=== PATIENT | female | born 1945 | race Caucasian/White ===

== ENCOUNTER 2016-06-19 08:10 | Observation (INO) | payer MEDICARE, OTHER ==
--- NOTE | ~2016-06-19 | TH ---
Unit #: [id number] #: [id number] Patient: CISCO NASH [id number] [address] [address] [id number] O MR#: [id number] NAME: CISCO NASH. : 1945 SEX: F STUDY DATE/TIME: UNIT: [facility] ROOM: STUDY DESCRIPTION: Nuclear Study Attending Physician: Tyrese Kumar Jr., M.D. Primary Care Physician: Tyrese Kumar Jr., M.D. CARDIOLOGY REPORT EXAM Exercise Cardiolite Stress Test - Nuclear Portion PROCEDURE Using technetium 99m labeled Cardiolite, rest and stress SPECT images were obtained. Multiple SPECT images were obtained in various views including horizontal and vertical long axis and short axis views of the left ventricle. Images were obtained by gated SPECT method. The patient was administered 12.0 mCi of Cardiolite at rest. The patient was administered 35.2 mCi of Cardiolite at peak exercise. Total exercise time is 6 minutes 44 seconds. On the stress images, there is normal perfusion noted. The rest images show mild decreased isotope activity anteroapically. Comparing rest and stress images, there is no stress-induced ischemia noted. The left ventricular ejection fraction is calculated to be 81%. There is no focal wall motion abnormality seen. The left ventricular size is small. CONCLUSION 1. No stress-induced ischemia noted. 2. The left ventricular ejection fraction is calculated to be 81%. 3. There is no focal wall motion abnormality seen. 4. The left ventricular size is small. 5. Normal nuclear portion of the stress test. 6. It must be noted that the patient had chest pain and some EKG changes during the exercise portion of the stress test. Her symptoms and EKG changes could either be due to poorly controlled blood pressure. If clinical suspicion is high, patient may need cardiac catheterization for definitive diagnosis. Dictated by.Martina. Paula Sam TD: 06/19/2016 11:47 JOB #: [id number] Unit #: [id number] #: [id number] Patient: CISCO NASH CARDIOLOGY REPORT Page 1 of 1 X Cassidy Wade MD <ELECTRONICALLY SIGNED> 10/14/16 1429 CARDIOLOGY REPORT
--- NOTE | ~2016-06-19 | DS ---
Unit #: [id number] #: [id number] Patient: CISCO NASH [id number] [facility] [address] [facility]. [place], [place] [address] [id number] I MR#: [id number] NAME: CISCO NASH. ROOM: 55 Age: 71 Sex: F Admission Date: 06/19/2016 : 1945 Discharge Date: 06/21/2016 Attending Physician: Timur Taylor M.D. Primary Care Physician: Tyrese Kumar Jr., M.D. DISCHARGE SUMMARY DISCHARGE DIAGNOSES 1. Abnormal exercise Cardiolite stress test with EKG changes and development of chest pain with radiation into the jaw. No ischemia on nuclear images. 2. Coronary artery disease, status post cardiac catheterization on 06/19/2016 at [facility] per Dr. Taylor, which revealed normal LV function. Left main, left anterior descending, and left circumflex normal. Right coronary artery with 60% long segment stenosis in the mid section. FFR 0.94, which was clinically nonsignificant. 2D echocardiogram on 06/19/2016 revealed a left ventricular ejection fraction of 55% to 60%. No regional wall motion abnormality. No significant valvular heart disease. No evidence of any pericardial effusion. Medical management with addition of Imdur and calcium channel danyel. However, calcium channel danyel discontinued secondary to orthostatic hypotension. 3. Previous cardiac catheterization on 11/30/2010 at [facility] revealed a left ventricular ejection fraction of 70% to 75%, mid left anterior descending 30% to 40%, right coronary artery and left circumflex normal. 4. History of hypertension, with recent orthostasis. 5. Hyperlipidemia. 6. Sarcoidosis. 7. Hypothyroidism. 8. Anxiety. 9. GERD. DISCHARGE MEDICATIONS Tylenol 650 mg p.o. q.6 hours p.r.n. for pain [id number], Lipitor 80 mg p.o. at bedtime, atenolol 50 mg p.o. daily, hydrochlorothiazide 12.5 mg p.o. daily, aspirin 81 mg p.o. daily, omeprazole 20 mg p.o. b.i.d., levothyroxine 88 mcg p.o. every morning, isosorbide mononitrate 30 mg p.o. daily, nitroglycerin 0.4 mg sublingual as needed for chest pain, calcium and vitamin D 600 mg p.o. b.i.d., Celexa 20 mg p.o. daily. HOSPITAL COURSE This is a 71-year-old white female, who presented to [facility] for an elective stress test due to chest pain. Pain was reportedly in the substernal chest and described as pressure with radiation to the bilateral neck, jaw, and face. She also had some shortness of breath and weakness, but no dizziness or palpitations. During the stress test, she had persistent chest pain. There was no change after sublingual nitroglycerin. Her blood pressure was elevated at 181/76 mmHg. EKG during the stress test revealed minor changes. The Unit #: [id number] #: [id number] Patient: CISCO NASH patient and daughter were informed and wanted to proceed with cardiac catheterization. Dr. Wade saw the patient in the stress lab and examined the patient. She has been admitted for further observation of chest pain. Cardiac enzymes were obtained and she ruled out for myocardial infarction. She was started on aspirin, and her beta-danyel, statin, and hydrochlorothiazide were restarted. Fasting lipid profile was obtained as well as a 2D echocardiogram with Doppler. Left ventricular ejection fraction was normal at 55% to 60%, and there was no valvular heart disease noted. The patient underwent a cardiac catheterization on 06/20/2016 at [facility] per Dr. Taylor. Coronary angiography revealed a normal left main, LAD, and left circumflex. Right coronary artery had a long segment stenosis of 60% in the mid section. FFR was completed and was nonsignificant at 0.94. She was continued on medical management with addition of Imdur and amlodipine. After the cardiac catheterization, the patient developed an episode of dizziness, nausea, and recurrent chest pain with radiation. She was given nitroglycerin and her pain improved. However, she continued to have some dizziness and nausea. She was kept in the hospital for a couple of hours and ambulated later in the afternoon. Upon ambulation, she developed recurrent dizziness. Orthostatics were obtained and were positive with approximately 30 mmHg drop with standing. Her discharge was canceled and she was kept overnight for further management. Unfortunately, her amlodipine was discontinued. Her hydrochlorothiazide was also stopped. Subsequently, the next day, her blood pressure improved. Repeat orthostatics were negative. Dr. Wade saw the patient and restarted her hydrochlorothiazide at a low dose, but the amlodipine was stopped altogether. The patient was anxious throughout hospitalization and has been started on Celexa. She has been instructed to take medications as prescribed and to follow up with her primary care and Dr. Wade. If her blood pressure is elevated at home, she can take an additional dose of atenolol. Telemetry reveals no sustained arrhythmias. Cath site is soft, without hematoma. Vitals and labs are currently unremarkable. DIAGNOSTIC STUDIES LABORATORY RESULTS: White blood cell count 8.5, hemoglobin 12, hematocrit 36.6, platelets 167. Sodium 140, potassium 4.2, chloride 109, CO2 of 26, BUN 19, creatinine 1.0, glucose 105. Troponin 0.03 and 0.03. Total cholesterol 151, triglycerides 92, LDL 89, HDL 44. INR 1.0. IMAGING STUDIES: Chest x-ray reveals no acute findings. CARDIOVASCULAR STUDIES: EKG reveals normal sinus rhythm with a ventricular rate of 78 beats per minute. No acute ST or T-wave changes. PHYSICAL EXAMINATION VITAL SIGNS: Temperature 97.8, pulse 63, blood pressure 151/66. CONSTITUTIONAL: This is a 71-year-old white female, in no acute distress. SKIN: Warm and dry. NECK: Supple. No jugular vein distention. No hepatojugular reflux. Normal carotid upstrokes. No carotid bruits auscultated. HEART: S1 and S2. Regular rate and rhythm. No murmurs, rubs, or gallops. LUNGS: Bilateral breath sounds have good air entry throughout all lung mendez. Respirations even and nonlabored. No rales, rhonchi, or wheezes. Unit #: [id number] #: [id number] Patient: CISCO NASH ABDOMEN: Soft, nontender, and nondistended. Positive bowel sounds auscultated x4 quadrants. No ascites noted. EXTREMITIES: Bilateral lower extremities have no pretibial pitting edema. DP and PT pulses are 2+. Capillary refill less than 2 seconds. DISCHARGE INSTRUCTIONS 1. The patient will be discharged home today. 2. Follow up with primary care provider in 1 to 2 weeks. 3. Follow up with Dr. Wade on 08/15/2016 at 12:30 p.m. 4. BMP on 07/04/2016 due to mildly low GFR. Results to be called to [phone]. 5. Postcatheterization instructions provided. Dictated by... Madina Robles APRN for Cassidy Paula Wade/keshav TD: 06/23/2016 00:45 JOB #: [id number] DISCHARGE SUMMARY Page 1 of 1 X X DISCHARGE SUMMARY
--- NOTE | ~2016-06-19 | ST ---
Unit #: [id number] #: [id number] Patient: CISCO NASH [id number] [facility]. [address] [place], [place] [address] [id number] O MR#: [id number] NAME: CISCO NASH. : 1945 SEX: F STUDY DATE/TIME: 06/19/2016 UNIT: CN ROOM: STUDY DESCRIPTION: Attending Physician: Tyrese Kumar Jr., M.D. Primary Care Physician: Tyrese Kumar Jr., M.D. CARDIOLOGY REPORT EXAM Exercise Cardiolite stress test. FINDINGS Baseline EKG shows sinus bradycardia with a rate of 58 beats per minute, otherwise normal. PROCEDURE The patient exercised on a treadmill using Joselito protocol for 6 minutes and 44 seconds, achieving a workload of 7.6 METs. Next, 86% of the maximum age-predicted heart rate was reached at 130 beats per minute with a maximum blood pressure response of 181/76 mmHg. The patient had a complaint of substernal chest pressure rated a 5/10 on pain scale at 2 minutes into the test. There was no electrocardiogram changes at that time. She continued to exercise; however, in the last stage of stage 2, her chest pressure radiated into her left anterior chest. She continued to walk on the treadmill for 45 seconds after being injected. There was a downsloping ST segment depression of 0.5 mm to 1 mm in the inferior leads. The test was terminated secondary to achieving target heart rate and chest pain. IMPRESSION 1. Functional class II with a workload of 7.6 METs with fair exercise tolerance. 2. Eighty six percent of the maximum age-predicted heart rate was reached at 130 beats per minute with a hypertensive blood pressure response. 3. The patient had a complaint of chest pain at 2 minutes into the test, worsening but improved in the recovery phase. 4. Cardiolite was injected at peak exercise. Radionuclide tests pending. 5. Of note, the patient was given one sublingual nitroglycerin but had no change in her chest pressure. Dictated by... Rivas Zayas A.P.R.N. for Paula Sam TD: 06/19/2016 10:27 Unit #: [id number] #: [id number] Patient: CISCO NASH JOB #: [id number] CC: Tyrese Kumar Jr. MMarjorie CARDIOLOGY REPORT Page 1 of 1 X Rivas Zayas APRN CARDIOLOGY REPORT
--- NOTE | ~2016-06-19 | HP ---
Unit #: [id number] #: [id number] Patient: CISCO NASH [id number] [facility]. [address] [place], [place] [address] [id number] I MR#: [id number] NAME: CISCO NASH. ROOM: 556 Age: 71 Sex: F Admission Date: 06/19/2016 : 1945 Attending Physician: Timur Taylor M.D. Primary Care Physician: Tyrese Kumar Jr., M.D. HISTORY AND PHYSICAL HISTORY OF PRESENT ILLNESS This is a 71-year-old, white female who was scheduled for an elective exercise Cardiolite stress test for evaluation of chest pain. The patient states she has substernal chest pressure, which radiates to both neck and jaw and into her face and cheeks. She has associated shortness of breath and weakness. No dizziness or palpitations. She had . She had chest pain within 2 minutes of walking on the treadmill that was moderate. There were no electrocardiogram changes. She continued to walk; however, the pain spread to her left anterior chest. At that time, she reached her target heart rate and the test was stopped. Her images were normal. There were minor changes in the electrocardiogram at the end of the test. She was hypertensive with blood pressure 181/76 mmHg. The patient has risk factors for ischemic heart disease including hypertension, hyperlipidemia, and strong family history of premature coronary artery disease. She had a cardiac catheterization in 2010 at [facility] where she was found to have nonobstructive coronary artery disease with 30% to 40% stenosis in the mid LAD. She has not followed with cardiology. She was very active where she was walking every other day 2 miles a day, but stopped in late December because of the cold weather. She has not started walking as of yet because she has been feeling weak. PAST MEDICAL HISTORY 1. Cardiac catheterization, 06/30/2010, shows an ejection fraction equal to 70% to 75% with mid LAD stenosis of 30% to 40%. Right coronary artery, left main, and circumflex artery normal. 2. Hypertension. 3. Hyperlipidemia. 4. Sarcoidosis. 5. Hypothyroidism. 6. Nonsmoker. PAST SURGICAL HISTORY No major surgeries. SOCIAL HISTORY The patient lives at home alone. She has never smoked. She denies illicit drug and alcohol use. FAMILY HISTORY Both parents had open heart surgery. Has a sister who also had open heart surgery. Has several brothers, all but one, who has heart disease. Unit #: [id number] #: [id number] Patient: CISCO NASH ALLERGIES Augmentin and amoxicillin. HOME MEDICATIONS 1. Simvastatin 40 mg q.h.s. 2. Levothyroxine 88 mcg daily. 3. Calcium plus D 600 mg b.i.d. 4. Reclast 10 mg IV yearly. 5. Omeprazole 20 mg b.i.d. 6. Tenormin 100 mg daily. 7. Hydrochlorothiazide 12.5 mg daily. REVIEW OF SYSTEMS CONSTITUTIONAL: Negative for fever or chills. Reports no weight gain or weight loss. Positive for weakness. HEENT: No headache changes or difficulty with swallowing. No dizziness. CARDIOVASCULAR: Has chest pain, as described in the HPI. Denies palpitations. No paroxysmal nocturnal dyspnea or orthopnea. No syncope or near syncope. RESPIRATORY: Positive for dyspnea that accompanies chest pain. No cough or hemoptysis. GASTROINTESTINAL: No abdominal pain, nausea, or vomiting. No constipation or melena. EXTREMITIES: Negative for lower extremity . PHYSICAL EXAMINATION VITAL SIGNS: Blood pressure 181/76 and heart rate 64. GENERAL: This is a pleasant, 71-year-old, well developed, white female who is in no acute distress. NEUROLOGICAL: She is awake, alert, and oriented; but noted for anxiety. NECK: Trachea is midline. No thyromegaly or lymphadenopathy. No jugular venous distention. HEART: S1 and S2 heart sounds are normal. No murmurs. No rubs or clicks. Regular rate and rhythm. LUNGS: Clear to auscultation without rales, rhonchi, or wheezes. ABDOMEN: Soft and nontender. Good bowel sounds are present. EXTREMITIES: Without leg edema. SKIN: Warm and dry. DIAGNOSTIC STUDIES CARDIOVASCULAR: Electrocardiogram shows normal sinus rhythm, but no acute ischemic changes at baseline. Repeat electrocardiogram during stress test showed a downsloping ST depression of 0.5-1 mm in the inferior leads. IMPRESSION 1. Chest pain, probably progression of her coronary artery disease. 2. Nonobstructive coronary artery disease per cardiac catheterization in 2010. 3. Hypertension. 4. Hyperlipidemia. 5. Anxiety. PLAN 1. The patient's results of the stress test were discussed between the Unit #: [id number] #: [id number] Patient: CISCO NASH daughter, patient, and Dr. Wade in the stress lab. She was given the option of continued medical therapy versus cardiac catheterization. The patient opted for cardiac catheterization. 2. Will start the patient on anticoagulation with aspirin. 3. Trend troponin. 4. Continue beta-danyel. 5. Two-dimensional echocardiogram will be done to evaluate left ventricular systolic function. 6. Chest x-ray for differential cause of chest pain. 7. Risks, benefits, and procedure were discussed with the patient and daughter including bleeding, myocardial infarction, CVA, renal and vascular complications, and . They agreed to proceed. Dictated by Benedict Rosales M.D. AEP/pc TD: 06/20/2016 07:10 JOB #: [id number] HISTORY AND PHYSICAL Page 1 of 1 X Rivas Zayas APRN HISTORY AND PHYSICAL
--- NOTE | ~2016-06-19 | EKG ---
PATIENT: CISCO NASH UNIT #: [id number] Ventricular Rate: 57 BPM Atrial Rate: 57 BPM P-R Interval: 168 ms QRS Duration: 86 ms Q-T Interval: 440 ms QTC Calculation(Bezet): 428 ms P [place]: 62 degrees Calculated R [place]: 57 degrees Calculated T [place]: 18 degrees Diagnosis Line: Sinus bradycardia Diagnosis Line: Otherwise normal ECG Diagnosis Line: When compared with ECG of 19-JUN-2016 13:32, Diagnosis Line: No significant change was found Diagnosis Line: Confirmed by SRAVANTHI DALY MD ([id number]) on Diagnosis Line: 06/25/2016 2:07:20 PM INTERPRETING MD: RALEIGH
--- NOTE | ~2016-06-19 | CR63 ---
[facility] A Service of [facility] & [facility] RADIOLOGY TEXT RESULTS PATIENT: CISCO NASH LOCATION: [place] [address] : [birth year] UNIT #: [id number] AGE: [address]: Timur Taylor MD SEX: F ORDER DR: [id number] [facility] [address] [place], [place] [address] [id number] I MR#: [id number] Acc #: [id number] NAME: CISCO NASH. : 1945 SEX: F STUDY DATE/TIME: 06/19/2016 14:02 UNIT: [facility] ROOM: [facility] STUDY DESCRIPTION: CR Chest 2 View Attending Physician: Timur Taylor M.D. Ordering Physician: Ed Doroteo Rich M.D. Primary Care Physician: Tyrese Kumar Jr., M.D. MEDICAL IMAGING REPORT This report is preliminary unless electronic signature is present EXAM PA and lateral chest. HISTORY 71-year-old female with chest pain and short of breath today. COMPARISON 06/12/2016 FINDINGS No new infiltrates. Heart size is stable. Degenerative change, thoracic spine. IMPRESSION No active disease. Dictated by... Ganga Velazquez M.D. THIS IS AN ELECTRONICALLY VERIFIED REPORT Ganga Velazquez M.D. at 06/20/2016 10:00 AM Josh TD: 06/19/2016 18:07 JOB #: [id number] MEDICAL IMAGING REPORT Page 1 of 1 COPY
--- NOTE | ~2016-06-19 | EKG ---
PATIENT: CISCO NASH UNIT #: [id number] Ventricular Rate: 70 BPM Atrial Rate: 70 BPM P-R Interval: 168 ms QRS Duration: 84 ms Q-T Interval: 416 ms QTC Calculation(Bezet): 449 ms P [place]: 53 degrees Calculated R [place]: 25 degrees Calculated T [place]: 9 degrees Diagnosis Line: Normal sinus rhythm Diagnosis Line: Normal ECG Diagnosis Line: No previous ECGs available Diagnosis Line: Confirmed by ALESSIA HERNANDEZ MD ([id number]) on 06/20/2016 Diagnosis Line: 10:27:30 PM INTERPRETING MD: MARY MEDEIROS
[~2016-06-19 08:10] MED LIST: ATENOLOL PO; ATENOLOL50 MG PO; CALCIUM WITH D PO; IMDUR30 MG PO; PRILOSEC PO; RECLAST 55 MG/100 M IV; SIMVASTATIN40 MG PO; SINGULAIR PO; TIROSINT88 MCG PO; VITAL-D RX TABL1 TAB PO; XYZAL5 MG PO
[2016-06-19] MEDS ORDERED: HYDROCHLOROTH12.5 M1 PO (13:19)
[2016-06-19 16:47] LABS: HEMATOCRIT 43.6 % (35.0-45.0); HEMOGLOBIN 14.2 gm/dL (12.0-16.0); MEAN CELL VOLUME 93.1 FL (83-96); MEAN CORPUSCULAR HEMOGLOBIN 30.3 PG (28-34); MEAN CORPUSCULAR HGB CONC 32.6 g/dL (30-36); MEAN PLATELET VOLUME 10.6 FL (6.5-11.5); RED BLOOD COUNT 4.68 X10e (3.90-5.30); RED CELL DISTRIBUTION WIDTH 15.2 % (11.0-15.5); WHITE BLOOD COUNT 7.1 X10e3 (4.0-10.5)
[2016-06-19 17:25] LABS: BUN/CREATININE RATIO 12.22; CALCIUM SERUM 9.4 mg/dL (8.4-10.2); CREATININE SERUM 0.9 mg/dL (0.6-1.4); GLOM FILT RATE Estimated 65.3 mL/min (>60); POTASSIUM 3.6 mmol/L (3.5-5.1)
[2016-06-19 17:48] LABS: %MB 2.8 % (0.0-4.0); MB 2.7 ng/ml
[2016-06-20 06:16] LABS: HEMATOCRIT 38.7 % (35.0-45.0); HEMOGLOBIN 12.8 gm/dL (12.0-16.0); MEAN CELL VOLUME 93.6 FL (83-96); MEAN CORPUSCULAR HEMOGLOBIN 30.9 PG (28-34); MEAN PLATELET VOLUME 10.1 FL (6.5-11.5); RED BLOOD COUNT 4.14 X10e (3.90-5.30); RED CELL DISTRIBUTION WIDTH 15.7 % (11.0-15.5); WHITE BLOOD COUNT 6.1 X10e3 (4.0-10.5)
[2016-06-20 06:32] LABS: PROTHROMBIN TIME (PATIENT) 10.2 SECONDS (9.6-11.5)
[2016-06-20 07:17] LABS: CALCIUM SERUM 9.1 mg/dL (8.4-10.2); GLOM FILT RATE Estimated 57.5 mL/min (>60); POTASSIUM 4.6 mmol/L (3.5-5.1)
[2016-06-20] MEDS ORDERED: PAIN RELIEF325 M1 PO (14:20)
[2016-06-20] MEDS ORDERED: LIPITOR80 MG PO (14:21)
[2016-06-20] MEDS ORDERED: BAYER CHEWABLE81 MG PO (14:22)
[2016-06-20] MEDS ORDERED: NITROSTAT0.4 MG SL (14:23)
[2016-06-20] MEDS ORDERED: AMLODIPINE BESYL5 MG PO (14:24)
[2016-06-20] MEDS ORDERED: IMDUR-ER30 M3 PO (14:24)
[2016-06-21 06:26] LABS: HEMATOCRIT 36.6 % (35.0-45.0); MEAN CELL VOLUME 94.4 FL (83-96); MEAN CORPUSCULAR HEMOGLOBIN 30.8 PG (28-34); MEAN CORPUSCULAR HGB CONC 32.7 g/dL (30-36); MEAN PLATELET VOLUME 10.4 FL (6.5-11.5); RED BLOOD COUNT 3.88 X10e (3.90-5.30); RED CELL DISTRIBUTION WIDTH 15.1 % (11.0-15.5); WHITE BLOOD COUNT 8.5 X10e3 (4.0-10.5)
[2016-06-21 07:16] LABS: CALCIUM SERUM 8.7 mg/dL (8.4-10.2); GLOM FILT RATE Estimated 57.5 mL/min (>60); POTASSIUM 4.2 mmol/L (3.5-5.1)
[2016-06-21] MEDS ORDERED: CELEXA20 MG PO (10:38)
== END 2016-06-21 11:57 | disposition home or self-care (01) ==
LOC: CNUC 08:10 → C5B 11:35
PROVIDERS: Internal Medicine Cardiovascular Disease; Nurse Practitioner
PROC: 4A023N7 Measurement of Cardiac Sampling and Pressure, Left Heart, Percutaneous Approach (ICD-10-PCS; principal; 2016-06-19)
PROC: B211YZZ Fluoroscopy of Multiple Coronary Arteries using Other Contrast (ICD-10-PCS; 2016-06-19)
PROC: B215YZZ Fluoroscopy of Left Heart using Other Contrast (ICD-10-PCS; 2016-06-19)
DX: I25.119 Atherosclerotic heart disease of native coronary artery with unspecified angina pectoris (principal); I10 Essential (primary) hypertension; D86.9 Sarcoidosis, unspecified; F41.9 Anxiety disorder, unspecified; E78.5 Hyperlipidemia, unspecified; E03.9 Hypothyroidism, unspecified; K21.9 Gastro-esophageal reflux disease without esophagitis; Z79.899 Other long term (current) drug therapy; R94.39 Abnormal result of other cardiovascular function study; Z88.0 Allergy status to penicillin; Z88.1 Allergy status to other antibiotic agents
CPT/HCPCS: 71020; 78452; 80048; 80061; 82550; 82553; 84484; 85027; 85610; 85730; 93005; 93017; 93306; 96374; A9500; C1769; C1887; C1894; C9113; G0378; J0153; J1644; J2250; J3010